=== PATIENT | female | born 1955 | race Caucasian/White ===

== ENCOUNTER → 2017-02-16 | Outpatient (CLI) | payer BC ==
[2017-02-16] MEDS: IOHEXOL 300 MG/ML 75 ML VIAL. IV ONE (12:52)
--- NOTE | 2017-02-16 14:11 | RAD ---
CT scan of the abdomen and pelvis with contrast 02/16/2017 Clinical history: Abnormal ultrasound at doctor's office. Possible bladder versus adnexal mass noted. Recurrent UTI. Technique: After the intravenous administration of 75 cc of Omnipaque 300 only, contiguous, 5 mm axial sections were obtained through the abdomen and pelvis. One or more of the following individualized dose reduction techniques were utilized for this study: 1. Automated exposure control. 2. Adjustment of the mA and/or kV according to patient size. 3. Use of iterative reconstruction technique. Findings: No previous imaging studies are available for comparison. Images through the lung bases are within normal limits. The liver, spleen, pancreas, adrenal glands and right kidney are within normal limits. A 1.2 cm rounded fat-containing lesion is seen involving the midpole of the left kidney. This is consistent with an angiomyolipoma. The abdominal aorta tapers normally. The gallbladder is slightly contracted. No free fluid or free air is seen within the abdomen. There is no evidence of bowel obstruction. Air and stool is seen throughout the colon. The appendix is not visualized. No inflammatory changes are seen surrounding the cecum. Images through the pelvis demonstrate the urinary bladder be slightly contracted. This makes it difficult to evaluate. There is mild wall thickening of the urinary bladder, particularly anteriorly. This is a nonspecific finding but could reflect a cystitis. Calcifications are seen within the pelvis consistent with phleboliths. The uterus is not visualized consistent with a hysterectomy. No adnexal mass is seen. No free fluid is noted. Minimal S shaped curvature of the thoracolumbar spine is seen. Degenerative changes are seen involving the thoracic and lumbar spine and both hips. Impression: The urinary bladder is slightly contracted and difficult to evaluate. There is mild wall thickening of the urinary bladder which is nonspecific but could reflect a cystitis. Clinical correlation is recommended. No adnexal mass is seen.
== END | disposition home or self-care (01) ==
LOC: CT 12:16
PROVIDERS: ATTEND Obstetrics & Gynecology
DX: N32.9 Bladder disorder, unspecified (principal); N39.0 Urinary tract infection, site not specified; N94.9 Unspecified condition associated with female genital organs and menstrual cycle; Z87.440 Personal history of urinary (tract) infections
CPT/HCPCS: 74177; Q9967

== ENCOUNTER → 2017-02-22 | Outpatient (CLI) | payer BC ==
--- NOTE | 2017-02-22 13:23 | RAD ---
Indication urinary tract infections. The history of hysterectomy has been provided. Initially transferred abdominal scans were obtained. Initial transabdominal scans were supplemented with transvaginal scans. The uterus is not seen compatible with the surgical history. The left ovary appears unremarkable. Within the right ovary there is a hypoechoic 1.4 cm mass compatible with a cyst. There are fluid-filled cystic structures in both adnexa most compatible with bilateral hydrosalpinx within the urinary bladder posterior wall there is a suggested 78 mm mass attached to the wall. The etiology is unclear. Cystoscopy should be considered. A small postvoid residual estimated at approximately 50 cc was seen IMPRESSION: Status post hysterectomy. Small cyst associated with the right ovary. Tubular structures in both adnexa most compatible with hydrosalpinx Suggested small soft tissue mass in the bladder wall. Cystoscopy showed be considered. Small postvoid residual
== END | disposition home or self-care (01) ==
LOC: US 09:29
PROVIDERS: ATTEND Obstetrics & Gynecology
DX: N83.201 Unspecified ovarian cyst, right side (principal); N70.11 Chronic salpingitis; N32.9 Bladder disorder, unspecified; N39.0 Urinary tract infection, site not specified; Z90.710 Acquired absence of both cervix and uterus
CPT/HCPCS: 76830; 76856

== ENCOUNTER → 2017-06-27 | Outpatient (CLI) | payer BC ==
--- NOTE | 2017-06-27 16:02 | RAD ---
DATE: 06/27/2017 EXAM: MAMMO BRYANT SCREENING BILATERAL HISTORY: Routine screening COMPARISON: 11/11/2015 This study was interpreted with the benefit of Computerized Aided Detection (CAD). FINDINGS: Breast Density: DENSE The breast Parenchyma is dense, which could reduce the sensitivity of mammography. Breast parenchyma level density D.. There is a small mass or cyst identified in the left lower medial left breast in its midportion. A small region of questionable architectural distortion identified in the lower posterior left breast. IMPRESSION: There is a small mass or cyst identified in the left lower medial left breast in its midportion. . A small region of questionable architectural distortion identified in the lower posterior left breast.Recommend spot compression views of the left breast and ultrasound BI-RADS CATEGORY: 0 INCOMPLETE: NEEDS ADDITIONAL IMAGING EVALUATION AND/OR PRIOR MAMMOGRAMS FOR COMPARISON. RECOMMENDED FOLLOW-UP: ADD ADDITIONAL IMAGING PQRS compliance statement: Patient information was entered into a reminder system with a target due date immediate recall for the next mammogram. Mammography is a sensitive method for finding small breast cancers, but it does not detect them all and is not a substitute for careful clinical examination. A negative mammogram does not negate a clinically suspicious finding and should not result in delay in biopsying a clinically suspicious abnormality. "Our facility is accredited by the [employer] Mammography [employer]."
== END | disposition home or self-care (01) ==
LOC: MAMMO 14:46
PROVIDERS: ATTEND Obstetrics & Gynecology
DX: Z12.31 Encounter for screening mammogram for malignant neoplasm of breast (principal)
CPT/HCPCS: 77063; G0202; 77067

== ENCOUNTER → 2017-07-09 | Outpatient (CLI) | payer BC ==
--- NOTE | 2017-07-09 13:13 | RAD ---
DATE: July 09, 2017 EXAM: DIGITAL DIAGNOSTIC LT, BREAST LEFT. Left breast sonography HISTORY: Further evaluation of architectural distortion and nodule of the left breast seen on the screening mammogram. COMPARISON: Screening mammogram dated June 27, 2017 This study was interpreted with the benefit of Computerized Aided Detection (CAD). LEFT-SIDED DIAGNOSTIC MAMMOGRAPHIC FINDINGS: Focal digital compression views of the left breast in the CC and MLO projections and a digital 90 degrees mediolateral view of the left breast were performed. The previously seen area of architectural distortion posterior and centrally does not persist. The previously seen nodule of the left breast does not persist. However, the patient is diffusely dense and has a strong family history of breast cancer. Therefore, left breast sonography will be performed. LEFT BREAST SONOGRAPHY: High-resolution sonography of all 4 quadrants and the retroareolar region of the left breast is performed. At the 6 clock position, 3 cm from the nipple, a 17 mm lobulated irregular hypoechoic area is seen. I did a breast exam in this area and no palpable lump or nodule is evident. This is a questionable finding but did persist even with further scanning. Therefore, recommend ultrasound-guided core biopsy sample of this area. Sonography of the left axillary region is performed and no focal sonographic abnormality is evident here. IMPRESSION: Hypoechoic area of the 6 clock position of the left breast seen sonographically. Recommend ultrasound-guided core biopsy sampling of this area for further evaluation. Note-I discussed the findings with the patient after completion of the examination at 11:35 AM on July 09, 2017. I told the patient that ultrasound-guided biopsy is recommended.. I told the patient to call her physician's office for further instructions. In addition, I called these results to Dr. Dorcas Lopez at 11:46 AM on July 09, 2017. BI-RADS CATEGORY: 4 SUSPICIOUS ABNORMALITY-BIOPSY SHOULD BE CONSIDERED RECOMMENDED FOLLOW-UP: BIO BIOPSY RECOMMENDED PQRS compliance statement: Patient information was entered into a reminder system with a target due date now for the next imaging evaluation which is biopsy. Mammography is a sensitive method for finding small breast cancers, but it does not detect them all and is not a substitute for careful clinical examination. A negative mammogram does not negate a clinically suspicious finding and should not result in delay in biopsying a clinically suspicious abnormality. "Our facility is accredited by the [employer] Mammography [employer]."
== END | disposition home or self-care (01) ==
LOC: MAMMO 10:23
PROVIDERS: ATTEND Obstetrics & Gynecology
DX: R92.8 Other abnormal and inconclusive findings on diagnostic imaging of breast (principal); Z80.3 Family history of malignant neoplasm of breast
CPT/HCPCS: 76641; G0206; 77065

== ENCOUNTER → 2018-01-11 | Outpatient (CLI) | payer BC, OTHER ==
--- NOTE | 2018-01-11 14:27 | RAD ---
Left breast ultrasound, 01/11/2018: History: Follow-up breast biopsy The entire left breast was carefully scanned. The fibroglandular tissues are quite heterogeneous in this patient with known extremely dense breast tissue. No cystic or solid breast mass is seen. The area of concern described on 07/09/2017 ultrasound exam could not be reproduced. There has reportedly been an interval benign biopsy in that region. IMPRESSION: No significant abnormality is detected. Routine mammographic surveillance is suggested. BI-RADS 1-negative
== END | disposition home or self-care (01) ==
LOC: US 12:44
PROVIDERS: ATTEND Obstetrics & Gynecology
DX: Z51.89 Encounter for other specified aftercare (principal); R92.0 Mammographic microcalcification found on diagnostic imaging of breast
CPT/HCPCS: 76641

== ENCOUNTER → 2018-07-30 | Outpatient (CLI) | payer OTHER ==
--- NOTE | 2018-07-30 16:48 | RAD ---
DATE: 07/30/2018 EXAM: MAMMO BRYANT SCREENING BILATERAL HISTORY: Routine screening COMPARISON: 06/27/2017, 07/09/2017 This study was interpreted with the benefit of Computerized Aided Detection (CAD). Breast Density: DENSE The breast parenchyma is dense, which could reduce the sensitivity of mammography. Breast parenchyma level density D. FINDINGS: 2-D and 3-D tomosynthesis imaging was performed in CC and MLO projections. A new breast biopsy marker is present at the 6:00 location in the left breast. No new or enlarging breast densities are seen. No spiculated mass or architectural distortion is evident. Minimal benign type calcification is present. No suspicious microcalcifications have developed. IMPRESSION: There is no mammographic evidence of malignancy either breast. BI-RADS CATEGORY: 2 BENIGN FINDING(S) RECOMMENDED FOLLOW-UP: 12M 12 MONTH FOLLOW-UP PQRS compliance statement: Patient information was entered into a reminder system with a target due date for the next mammogram. Mammography is a sensitive method for finding small breast cancers, but it does not detect them all and is not a substitute for careful clinical examination. A negative mammogram does not negate a clinically suspicious finding and should not result in delay in biopsying a clinically suspicious abnormality. "Our facility is accredited by the [employer] Mammography [employer]."
== END | disposition home or self-care (01) ==
LOC: MAMMO 14:03
PROVIDERS: ATTEND Obstetrics & Gynecology
DX: Z12.31 Encounter for screening mammogram for malignant neoplasm of breast (principal)
CPT/HCPCS: 77063; 77067

== ENCOUNTER → 2019-08-07 | Outpatient (CLI) | payer BC, OTHER ==
--- NOTE | 2019-08-08 09:02 | RAD ---
DATE: August 07, 2019 EXAM: MAMMO BRYANT SCREENING BILATERAL HISTORY: Screening study. History of benign left breast biopsy. COMPARISON: 2015 and 2016 and 2018 This study was interpreted with the benefit of Computerized Aided Detection (CAD). 2-D digital mammographic views of both breasts were performed in the CC and MLO projections. 3-D digital tomosynthesis images of both breasts were performed in the CC and MLO projections and reviewed on a computer workstation. FINDINGS: Breast Density: DENSE The breast parenchyma is dense, which could reduce the sensitivity of mammography. Breast parenchyma level density D.. There are no dominant suspicious masses, suspicious microcalcifications or evidence of architectural distortion. Biopsy clip is again evident within the inferior central aspect of the left breast at the 6 clock position. IMPRESSION: No mammographic indicators for malignancy. BI-RADS CATEGORY: 2 BENIGN FINDING RECOMMENDED FOLLOW-UP: 12M 12 MONTH FOLLOW-UP PQRS compliance statement: Patient information was entered into a reminder system with a target due date August 08, 2020 for the next mammogram. Mammography is a sensitive method for finding small breast cancers, but it does not detect them all and is not a substitute for careful clinical examination. A negative mammogram does not negate a clinically suspicious finding and should not result in delay in biopsying a clinically suspicious abnormality. "Our facility is accredited by the [employer] Mammography Program." The patient's breast density may affect the ability of mammography to detect breast cancer. There are 4 categories of breast density, A, B, C and D. Breast density A means that most of the breast tissue is replaced with adipose tissue and therefore is not dense. Breast density B means that the breast tissue is mildly dense and scattered. Breast density C means that the breast tissue is heterogeneously dense. Breast density D means that the breast tissue is very dense. Breast densities especially C and D may decrease the sensitivity of mammography to detect breast cancer. Therefore, the patient may benefit from 3-D breast mammography (3D breast tomography) as a part of their screening mammogram. Insurance may or may not pay for this additional imaging. The patient's breast density based on today's mammogram is category D.
== END | disposition home or self-care (01) ==
LOC: MAMMO 14:21
PROVIDERS: ATTEND Obstetrics & Gynecology
DX: Z12.31 Encounter for screening mammogram for malignant neoplasm of breast (principal)
CPT/HCPCS: 77063; 77067

== ENCOUNTER → 2020-08-16 | Outpatient (CLI) | payer BC, OTHER ==
--- NOTE | 2020-08-17 14:09 | RAD ---
DATE: 08/16/2020 3:30 PM EXAM: MAMMO BRYANT SCREENING BILATERAL HISTORY: Screening COMPARISON: 08/07/2019, 07/30/2018 Bilateral CC and MLO views of the breasts were performed. Bilateral breast tomosynthesis was performed in CC and MLO projections. This study was interpreted with the benefit of Computerized Aided Detection (CAD). FINDINGS: Breast Density: DENSE The breast Parenchyma is dense, which could reduce the sensitivity of mammography. Breast parenchyma level density D. No suspicious masses, microcalcifications or architectural distortion is present to suggest malignancy in either breast. The visualized axillae are unremarkable. IMPRESSION: No mammographic evidence of malignancy. BI-RADS CATEGORY: 1 NEGATIVE RECOMMENDED FOLLOW-UP: 12M 12 MONTH FOLLOW-UP Annual screening mammography is recommended, unless clinically indicated sooner based on symptoms or change in physical exam. PQRS compliance statement: Patient information was entered into a reminder system with a target due date for the next mammogram. Mammography is a sensitive method for finding small breast cancers, but it does not detect them all and is not a substitute for careful clinical examination. A negative mammogram does not negate a clinically suspicious finding and should not result in delay in biopsying a clinically suspicious abnormality. "Our facility is accredited by the [employer] Mammography [employer]."
== END ==
LOC: MAMMO 15:17
PROVIDERS: ATTEND Internal Medicine
DX: Z12.31 Encounter for screening mammogram for malignant neoplasm of breast (principal)
CPT/HCPCS: 77063; 77067

== ENCOUNTER → 2021-08-29 | Outpatient (CLI) | payer BC ==
--- NOTE | 2021-08-29 13:50 | RAD ---
DATE: 08/29/2021 EXAM: MG BILAT SCREEN+BRYANT HISTORY: Screening COMPARISON: 08/16/2020. 08/07/2019. 07/30/2018. This study was interpreted with the benefit of Computerized Aided Detection (CAD). Breast Density: DENSE The breast parenchyma is dense, which could reduce the sensitivity of mammograp hy. Breast parenchyma level density D. FINDINGS: There is a biopsy clip in the left breast. No suspicious mass, suspicious calcification, or architectural distortion. IMPRESSION: No evidence of malignancy. BI-RADS CATEGORY: 1 NEGATIVE RECOMMENDED FOLLOW-UP: 12M 12 MONTH FOLLOW-UP PQRS compliance statement: Patient information was entered into a reminder system with a target due d ate for the next mammogram. Mammography is a sensitive method for finding small breast cancers, but it does not detect them all a nd is not a substitute for careful clinical examination. A negative mammogram does not negate a clin ically suspicious finding and should not result in delay in biopsying a clinically suspicious abnorma lity. "Our facility is accredited by the [employer] Mammography Program." Electronically signed by: Eloisa Land MD (08/29/2021 1:47 PM) [id number]
== END ==
LOC: MAMMO 08:36
PROVIDERS: ATTEND Internal Medicine
DX: Z12.31 Encounter for screening mammogram for malignant neoplasm of breast (principal)
CPT/HCPCS: 77063; 77067

== ENCOUNTER → 2021-10-18 | Outpatient (CLI) | payer BC ==
[2021-10-18 09:33] LABS: ALBUMIN 4.4 g/dL (3.4-5.0); ALBUMIN/GLOBULIN RATIO 1.3 (1.0-1.7); ALK PHOS 76 U/L (46-116); ALT (SGPT) 29 U/L (14-59); ANION GAP 8 (6-14); AST (SGOT) 25 U/L (15-37); BLOOD UREA NITROGEN 11 mg/dL (7-20); BUN/CREATININE RATIO 18 (6-20); C REACTIVE PROTEIN < 0.5 mg/L (0-3.3); CARBON DIOXIDE 28 mmol/L (21-32); CHLORIDE 101 mmol/L (98-107); CREATININE 0.6 mg/dL (0.6-1.0); GFR 99.7; GLUCOSE 97 mg/dL (70-99); POTASSIUM 4.3 mmol/L (3.5-5.1); SODIUM 137 mmol/L (136-145); TOTAL BILIRUBIN 0.7 mg/dL (0.2-1.0); TOTAL PROTEIN 7.7 g/dL (6.4-8.2)
[2021-10-18 21:14] LABS: CHOLESTEROL/HDL RATIO 2.6
== END ==
LOC: LAB 08:09
PROVIDERS: ATTEND Nurse Practitioner
DX: R07.9 Chest pain, unspecified (principal); E78.5 Hyperlipidemia, unspecified
CPT/HCPCS: 36415; 80053; 80061; 85651; 86140